=== PATIENT | female | born 1985 ===

== ENCOUNTER 2018-03-14 09:42 | Emergency (ER) | payer BC ==
[2018-03-14 09:45] VITALS: BP 88/28
[2018-03-14] MEDS ORDERED: PROG100C PO (09:50)
[2018-03-14] MEDS ORDERED: AMOX/CLAV 875 MG TAB PO ONE (09:55)
[2018-03-14] MEDS ORDERED: DIPHTH/TETANUS/ACEL. PERTUSSIS IM ONLY ONE (09:55)
--- NOTE | 2018-03-14 10:03 | ER Report ---
History and Physical Time Seen By MD: 09:59 Hx. of Stated Complaint: dog bit to right hand last night. 4-6 small punture wounds, swelling, pain HPI/ROS CHIEF COMPLAINT: Dog bite HISTORY OF PRESENT ILLNESS: Patient is a 33-year-old female who presents to department for evaluation of a dog bite that occurred last evening. She states that 2 of her dogs got into a fight last evening. She tried to break the fight up she was sitting on a couch initially. When the fight occurred she rolled off the couch landing on her tailbone and is having pain with sitting. When she tried to break up a dog fight. She was bit to the thenar eminence of the right hand. She is right-hand dominant. Her last tetanus shot was approximately 5 years ago. Patient states both dogs immunizations are up-to-date including rabies vaccination. Patient is complaining of pain to her tailbone but also to her right hand. No evidence of purulent discharge from the hand patient denies fevers or chills. Allergies: Coded Allergies: No Known Drug Allergies (Unverified , 03/14/18) Home Meds Active Scripts Oxycodone Hcl/Acetaminophen (PERCOCET 5-325 MG TABLET) 1 Each Tablet, 1-2 EACH PO Q6H for PAIN, #20 TAB 0 Refills Prov:AMBROSE DELA CRUZ MD 03/14/18 Amoxicillin/Pot Clav 875-125 Mg Tab (AUGMENTIN 875-125 TABLET) 1 Each Tablet, 1 TAB PO Q12H, #14 TAB 0 Refills Prov:AMBROSE DELA CRUZ MD 03/14/18 Reported Medications Progesterone,Micronized (PROGESTERONE) 100 Mg Capsule, 100 MG PO, CAPSULE 03/14/18 Past Medical/Surgical History History of partial hysterectomy and endometriosis. Hx Substance Use Disorder: No Hx Alcohol Use: No Constitutional Vital Sign - Last 24 Hours 03/14/18 09:45 Temp 97.8 Pulse 76 Resp 14 B/P (MAP) 88/28 Pulse Ox 94 O2 Delivery Room Air Physical Exam General appearance: Alert no distress. Respiratory: Chest is non tender, lungs are clear to auscultation. Cardiac: Regular rate and rhythm [ ] Examination of the Right hand reveals no acute deformity. The patient is able to give a thumbs up sign, is able to make an okay sign, and is able to AB duct the fingers. Sensation is intact over the dorsal 1st web space, the volar aspect of the 2nd finger, and the volar aspect of the 5th finger. Capillary refill is brisk. She has approximately 6 puncture wounds to the thenar eminence of the right hand. The right hand has some bruising and swelling. There is no overlying erythema there is no purulent discharge from the wound. [ ] Medical Decision Making EKG/Imaging Imaging FACILITY: [facility] PATIENT NAME: Korin Will : 1985 MR: [id number] V: [id number] EXAM DATE: ORDERING PHYSICIAN: AMBROSE DELA CRUZ TECHNOLOGIST: [place] [facility] [place] Korin Will : 1985 Visit/Account:[id number] Date of Sevice: 03/14/2018 SACRUM COCCYX Indication: Trauma. Comparison: None available. Findings: 2 views of the sacrum and coccyx. Possible nondisplaced fracture of the inferior sacrum, only seen on the lateral view. Otherwise no acute fracture, dislocation, or radiopaque foreign body. Normal mineralization, joint spaces, and alignment. Impression: Possible nondisplaced fracture of the inferior sacrum, only seen on the lateral view. Report Dictated By: Jaspal Ulloa MD at 03/14/2018 10:34 AM Report E-Signed By: Jaspal Ulloa MD at 03/14/2018 10:37 AM WSN:[id number] FACILITY: [facility] PATIENT NAME: Korin Will : 1985 MR: [id number] V: [id number] EXAM DATE: ORDERING PHYSICIAN: AMBROSE DELA CRUZ TECHNOLOGIST: [place] [facility] [place] Korin Will : 1985 Visit/Account:[id number] Date of Sevice: 03/14/2018 HAND COMPLETE RIGHT FINGER RIGHT THUMB Indication: Right hand and thumb pain. Comparison: None available. Findings: 3 views of the right hand. 3 views of the right thumb. No evidence of acute fracture, dislocation, or radiopaque foreign body. Normal mineralization, joint spaces, and alignment. Impression: Negative right hand and right thumb radiographs. Report Dictated By: Jaspal Ulloa MD at 03/14/2018 10:37 AM Report E-Signed By: Jaspal Ulloa MD at 03/14/2018 10:40 AM WSN:[id number] ED Course/Re-evaluation ED Course 03/14/2018 10:03:05 am when at this time will be to x-ray the thumb and right hand. We will give the patient updated tetanus shot start the patient on oral Augmentin. We will also x-ray of the sacral spine. Decision to Disposition Date: Mar 14, 2018 Decision to Disposition Time: 10:48 Depart Departure Latest Vital Signs Vital Signs Date Time Temp Pulse Resp B/P (MAP) Pulse Ox O2 Delivery O2 Flow Rate FiO2 03/14/18 09:45 97.8 76 14 88/28 94 Room Air Impression: Primary Impression: Dog bite of hand Additional Impression: Sacral fracture, closed Condition: Improved Disposition: HOME OR SELF-CARE New Scripts Oxycodone Hcl/Acetaminophen (PERCOCET 5-325 MG TABLET) 1 Each Tablet 1-2 EACH PO Q6H for PAIN, #20 TAB 0 Refills Prov: AMBROSE DELA CRUZ MD 03/14/18 Amoxicillin/Pot Clav 875-125 Mg Tab (AUGMENTIN 875-125 TABLET) 1 Each Tablet 1 TAB PO Q12H, #14 TAB 0 Refills Prov: AMBROSE DELA CRUZ MD 03/14/18 Departure Forms: ER Transition Record, Medications Reconciliation, Off Work/ School Form, School or Work Release?: Work Number of days to be released: 2 Patient Portal Information Patient Instructions: Animal Bite (ED) Additional Instructions: If you develop fever at any time, worsening pain to the hand pus out of the wound or redness that extends from the wounds you should return to the emergency department for further evaluation. Problem Qualifiers Primary Impression: Dog bite of hand Encounter type: initial encounter Laterality: right Qualified Codes: S61.451A - Open bite of right hand, initial encounter; W54.0XXA - Bitten by dog , initial encounter Additional Impression: Sacral fracture, closed Encounter type: initial encounter Zone of sacrum fracture: unspecified portion of sacrum Qualified Codes: S32.10XA - Unspecified fracture of sacrum, initial encounter for closed fracture AMBROSE DELA CRUZ MD Mar 14, 2018 10:03
[2018-03-14] MEDS ORDERED: AMOX-559 PO (10:40)
[2018-03-14] MEDS ORDERED: OXYC-865 PO (10:40)
--- NOTE | 2018-03-14 10:41 | RADIOLOGY IMAGING REPORT ---
FACILITY: [facility] PATIENT NAME: Korin Will : 1985 MR: [id number] V: [id number] EXAM DATE: ORDERING PHYSICIAN: AMBROSE DELA CRUZ TECHNOLOGIST: Location: [facility] Patient: Korin Will : 1985 Visit/Account:[id number] Date of Sevice: 03/14/2018 SACRUM COCCYX Indication: Trauma. Comparison: None available. Findings: 2 views of the sacrum and coccyx. Possible nondisplaced fracture of the inferior sacrum, only seen on the lateral view. Otherwise no acute fracture, dislocation, or radiopaque foreign body. Normal mineralization, joint sp aces, and alignment. Impression: Possible nondisplaced fracture of the inferior sacrum, only seen on the lateral view. Report Dictated By: Jaspal Ulloa MD at 03/14/2018 10:34 AM Report E-Signed By: Jaspal Ulloa MD at 03/14/2018 10:37 AM WSN:[id number]
--- NOTE | 2018-03-14 10:43 | RADIOLOGY IMAGING REPORT ---
FACILITY: [facility] [place] PATIENT NAME: Korin Will : 1985 MR: [id number] V: [id number] EXAM DATE: ORDERING PHYSICIAN: AMBROSE DELA CRUZ TECHNOLOGIST: [place] [facility] [place]: Korin Will : 1985 Visit/Account:[id number] Date of Sevice: 03/14/2018 HAND COMPLETE RIGHT FINGER RIGHT THUMB Indication: Right hand and thumb pain. Comparison: None available. Findings: 3 views of the right hand. 3 views of the right thumb. No evidence of acute fracture, dislocation, or radiopaque foreign body. Normal mineralization, joint spaces, and alignment. Impression: Negative right hand and right thumb radiographs. Report Dictated By: Jaspal Ulloa MD at 03/14/2018 10:37 AM Report E-Signed By: Jaspal Ulloa MD at 03/14/2018 10:40 AM WSN:[id number]
--- NOTE | 2018-03-14 10:43 | RADIOLOGY IMAGING REPORT ---
FACILITY: [facility] [place] PATIENT NAME: Korin Will : 1985 MR: [id number] V: [id number] EXAM DATE: ORDERING PHYSICIAN: AMBROSE DELA CRUZ TECHNOLOGIST: Location: [facility] Patient: Korin Will : 1985 Visit/Account:[id number] Date of Sevice: 03/14/2018 HAND COMPLETE RIGHT FINGER RIGHT THUMB Indication: Right hand and thumb pain. Comparison: None available. Findings: 3 views of the right hand. 3 views of the right thumb. No evidence of acute fracture, dislocation, or radiopaque foreign body. Normal mineralization, joint spaces, and alignment. Impression: Negative right hand and right thumb radiographs. Report Dictated By: Jaspal Ulloa MD at 03/14/2018 10:37 AM Report E-Signed By: Jaspal Ulloa MD at 03/14/2018 10:40 AM WSN:[id number]
== END 2018-03-14 10:57 | disposition home or self-care (01) ==
LOC: ER 09:46
DX: S61.451A Open bite of right hand, initial encounter (principal); S32.10XA Unspecified fracture of sacrum, initial encounter for closed fracture; W08.XXXA Fall from other furniture, initial encounter; W54.0XXA Bitten by dog, initial encounter
CPT/HCPCS: 72220; 90471; 90715; 99284

== ENCOUNTER 2018-03-27 00:51 | Observation (INO) | payer BC ==
--- NOTE | 2018-03-26 21:24 | HISTORY AND PHYSICAL ---
DATE OF ADMISSION: March 27, 2018 CHIEF COMPLAINT Left lower quadrant pain. HISTORY OF PRESENT ILLNESS The patient is a 33-year-old, 1, para zero, with left lower quadrant pain beginning many months ago, initiated in the left lower quadrant. It was nonradiating, and she reported the pain as crampy and as moderate intensity. It was constant and had been a sudden onset. The patient has a history of endometriosis, and she had a bilateral salpingo-oophorectomy in 2016. However, she has had menopausal symptoms, and when put on control pills, her bleeding and pain worsened. After discussion of risks and alternatives, patient desired to proceed with robot-assisted hysterectomy and diagnostic cystoscopy. MEDICATIONS 1. Aygestin 5 mg q. day. 2. Clobetasol p.r.n. 3. MetroGel vaginal. 4. Premarin cream 0.625 mg per a.m. 5. Tramadol. ALLERGIES No known allergies. REVIEW OF SYSTEMS GENITOURINARY: Per HPI. GENERAL, SKIN, EYES, EARS, NOSE, MOUTH, NECK, RESPIRATORY, CARDIOVASCULAR, GASTROINTESTINAL, NEUROLOGIC, PSYCHIATRIC: All reviewed and noncontributory. PAST HISTORY 1. Endometriosis. 2. Traumatic brain injury with a concussion. PAST SURGICAL HISTORY 1. 2011, a breast reduction for back pain. 2. 2016, BSO for endometriosis and ovarian cyst removal. FAMILY HISTORY Father with diabetes. SOCIAL HISTORY Drinks alcohol occasionally. She is an everyday smoker. Denies illicit drug use. PHYSICAL EXAMINATION VITAL SIGNS: BP 130/64, temp 98, weight 116. CONSTITUTIONAL: Well-nourished, well-developed female in no distress. SKIN: Without rash or lesions. NECK: Supple, without masses. HEART: Regular rate and rhythm. LUNGS: Clear to auscultation bilaterally. ABDOMEN: Soft, nontender, nondistended. Bowel sounds positive. EXTREMITIES: Nontender. No edema. PSYCHIATRIC: Alert and oriented times three. Normal mood and affect. PELVIC: Normal external female genitalia. Well-estrogenized vaginal lining. Urethra normal appearance. Uterus 5 x 4 cm, nontender. She had no adnexal masses or tenderness. ASSESSMENT Pelvic pain with history of endometriosis. PLAN Robotic-assisted hysterectomy with diagnostic cystoscopy. [facility] CENTER[facility]io
[2018-03-27] VITALS (17 sets, daily range): BP systolic 109–157; BP diastolic 79–103
[~2018-03-27] VITALS: Ht 160 cm; Wt 49.9 kg
[~2018-03-27 00:51] MED LIST: AMOX-559 PO; CALC-734 PO; MET70GEL PV; OXYC-865 PO; PROG100C PO
--- NOTE | 2018-03-27 07:34 | Post Operative Note ---
Operative Note - CUSTOMER CARE ASSOCIATE Operative Day Date: Mar 27, 2018 Time: 11:35 Physicians Surgeon: BLAIRE Rn Iv Therapy: MIRANDA Anesthesia: OSHEA Diagnosis Pre-Op Diagnosis: PELVIC PAIN ENDOMETRIOSIS Post-Op Diagnosis: SAME ADHESIONS Procedure Findings: UTERUS 5X4 CM SURGICALLY ABSENT OVARIES ANTERIOR AB WALL ADHESIONS, RIGHT PELVIC SIDEWALL ADHESIONS [id number] Procedure(s): RAH DX CYSTO ADHESIOLYSIS Complications: 0 Fluids Fluids: 1200 CC NR IV Estimated Blood Loss: MINIMAL Dictated Date OP Note Dictated: Mar 27, 2018 Time OP Note Dictated: 13:05 Copies to: AMAIRANI RUDD MD ; AMAIRANI RUDD MD Mar 27, 2018 07:34
[2018-03-27 09:26] LABS: PLATELET COUNT, AUTOMATED 289 K/uL (150-450)
[2018-03-27] MEDS ORDERED: fentaNYL CITR 250 MCG/5 ML AMP ONE (09:42)
[2018-03-27] MEDS ORDERED: LIDOCAINE MPF 1% 5 ML VIAL ONE (09:43)
[2018-03-27] MEDS ORDERED: PROPOFOL EMUL(*) 10MG/ML 20 ML 20 ML ONE (09:43)
[2018-03-27] MEDS ORDERED: DEXAMETHASONE SOD PHOS 10MG/ML ONE (09:43)
[2018-03-27] MEDS ORDERED: ROCURONIUM BROM 10 MG/ML 10 ML ONE (09:43)
[2018-03-27] MEDS ORDERED: GLYCOPYRROLATE 1 MG/5 ML INJ ONE (09:43)
[2018-03-27] MEDS ORDERED: APREPITANT 40 MG CAP PO ONE (09:45)
[2018-03-27] MEDS ORDERED: SCOP1PAT16 TD (09:49)
[2018-03-27] MEDS ORDERED: ROPIVACAINE 0.2% 20 ML VIAL ONE (10:12)
[2018-03-27] MEDS ORDERED: FAMOTIDINE 20 MG TAB PO ONE (10:15)
[2018-03-27] MEDS ORDERED: cefOXitin/DEX(*) 2GM/50ML PREM 50 ML IVPB ONE (10:15)
[2018-03-27] MEDS ORDERED: HYDROmorphone HCL 2 MG TAB PO ONE (10:15)
[2018-03-27] MEDS ORDERED: LIDOCAINE/SOD BICARB 8.4% SYR ID ONE (10:15)
[2018-03-27] MEDS ORDERED: PHENAZOPYRIDINE 200 MG TAB PO ONE (10:15)
[2018-03-27] MEDS ORDERED: NORMOSOL R SOLN(*) 1000 ML BAG 1,000 ML IV PRN (10:15)
[2018-03-27] MEDS ORDERED: MIDAZOLAM 2 MG/2 ML VIAL IVP PRN (10:15)
[2018-03-27] MEDS ORDERED: CELECOXIB 200 MG CAP PO ONE (10:15)
[2018-03-27] MEDS ORDERED: OXYC-865 PO (11:06)
[2018-03-27] MEDS ORDERED: IBUP800T37 PO (11:06)
[2018-03-27] MEDS ORDERED: NORE5TAB8 PO (11:06)
--- NOTE | 2018-03-27 11:07 | OB/GYN Discharge Summary ---
Discharge Summary Reason for Hosp/Final Diag: (1) S/P robot-assisted surgical procedure Hospital Course & Plan: RAH DX CYSTO Performed without complications, on day 1, Pain controlled, Tolerating diet and activity. Lates Vital Signs Vital Signs Date Time Temp Pulse Resp B/P (MAP) Pulse Ox O2 Delivery O2 Flow Rate FiO2 03/27/18 09:20 99.2 72 16 109/79 (89) 96 Room Air Weight (Pounds): 110 Result Diagram: 03/27/18917 Condition: Improved Discharge: Home, Self Nursing Home Meds Active Scripts Norethindrone Acetate (AYGESTIN) 5 Mg Tablet, 5 MG PO QDAY, #30 TAB 5 Refills Prov:AMAIRANI RUDD MD 03/27/18 Oxycodone Hcl/Acetaminophen (PERCOCET 5-325 MG TABLET) 1 Each Tablet, 1 EACH PO Q4H for PAIN, #20 TAB 0 Refills TAKE 1 TABLET NEEDED FOR PAIN - NO CLOSER THAN EVERY 4-6 HOURS. Prov:AMAIRANI RUDD MD 03/27/18 Ibuprofen (IBUPROFEN) 800 Mg Tablet, 1 TAB PO Q8H, #30 TAB 0 Refills Take with food every 8 hours. Prov:AMAIRANI RUDD MD 03/27/18 Reported Medications Scopolamine (Scopolamine) 1 Mg/3 Day Patch.td.3, 1 PATCH TD ONCE 03/27/18 Calcium Carbonate/Vitamin D3 (CALCIUM 500 + D TABLET) 1 Each Tablet, 3 EACH PO QDAY 03/20/18 Metronidazole (METRONIDAZOLE) 70 Gm Appful, 70 GM PV 2XW, APPFUL 03/20/18 Progesterone,Micronized (PROGESTERONE) 100 Mg Capsule, 100 MG PO QDAY, CAPSULE 03/14/18 Discontinued Scripts Oxycodone Hcl/Acetaminophen (PERCOCET 5-325 MG TABLET) 1 Each Tablet, 1-2 EACH PO Q6H for PAIN, #20 TAB 0 Refills Prov:AMBROSE DELA CRUZ MD 03/14/18 Amoxicillin/Pot Clav 875-125 Mg Tab (AUGMENTIN 875-125 TABLET) 1 Each Tablet, 1 TAB PO Q12H, #14 TAB 0 Refills Prov:AMBROSE DELA CRUZ MD 03/14/18 [facility] [phone] Follow up in: 6 wks PP or PO, 2 wks PO Discharge Diet: As Tolerates Discharge Activity: Pelvic Rest Copies to: AMAIRANI RUDD MD ; AMAIRANI RUDD MD Mar 27, 2018 11:07
[2018-03-27] MEDS ORDERED: ESMOLOL 10 MG/ML 10ML SDV ONE (11:08)
[2018-03-27] MEDS ORDERED: SUGAMMADEX SOD 200 MG/2 ML SDV ONE (12:35)
[2018-03-27] MEDS ORDERED: FAMOTIDINE(*) 20MG/50ML PREMIX 50 ML IVPB PRN (12:51)
[2018-03-27] MEDS ORDERED: ONDANSETRON 4 MG/2 ML VIAL IV PRN (12:55)
[2018-03-27] MEDS ORDERED: INFLUENZA VIRUS VAC 0.5 ML SYR IM ONE (12:55)
[2018-03-27] MEDS ORDERED: METOCLOPRAMIDE 10 MG/2 ML SDV IV PRN (12:55)
[2018-03-27] MEDS ORDERED: PROMETHAZINE 25 MG/ML 1 ML AMP IVP PRN (12:55)
[2018-03-27] MEDS: SIMETHICONE 80 MG CHEW CHEW SCH ×3 (13:00→21:28)
[2018-03-27] MEDS ORDERED: fentaNYL CITR 100 MCG/2 ML AMP ONE ×2 (13:04→14:10)
[2018-03-27] MEDS: ACETAMINOPHEN(*)1000 MG/100 ML 100 ML IVPB SCH ×2 (13:17→20:13)
[2018-03-27] MEDS ORDERED: HYDROmorphone HCL 2 MG TAB PO PRN (13:30)
[2018-03-27] MEDS ORDERED: PROMETHAZINE 25 MG/ML 1 ML AMP ONE (14:07)
--- NOTE | 2018-03-27 14:47 | OPERATIVE REPORT 1 ---
EVENT DATE: March 27, 2018 SURGEON: Bill Zavaleta MD ANESTHESIOLOGIST: Yash Giraldo MD ANESTHESIA: transformer shop supervisor: Shelton Castro MD PREOPERATIVE DIAGNOSIS 1. Pelvic pain. 2. Endometriosis. POSTOPERATIVE DIAGNOSIS 1. Pelvic pain. 2. Endometriosis. 3. Adhesions. PROCEDURE PERFORMED 1. Robotic assisted hysterectomy with adhesiolysis and diagnostic cystoscopy. COMPLICATIONS None. FLUIDS 1200 cc. Normosol IV. ESTIMATED BLOOD LOSS Minimal. INDICATIONS The patient is a 33-year-old female with biopsy proven endometriosis. She had bilateral salpingo oophorectomy at the [facility] for endometriosis. The patient has had worsening pain and bleeding since trying to manage her pain medically as well as vasomotor symptoms. After discussion of risks and alternatives, the patient desired to proceed with hysterectomy. Discussed risks, benefits, and alternatives, the patient wished to proceed with Robotic hysterectomy. FINDINGS Uterus 5x4 cm, surgically absent ovaries, adhesion on the anterior abdominal and right side wall. DESCRIPTION OF PROCEDURE After informed consent was obtained, the patient was taken to the operating room with the IV running, placed in a supine position, where general anesthesia was obtained without difficulty. She was then placed in the [facility], examined under anesthesia, with the above findings. She was then prepped and draped in the usual fashion. A Marks catheter was placed. The weighted speculum was placed into the vagina. The cervix was grasped with a single-tooth tenaculum. The uterus sounded to 8 cm. The medium V-Care was then placed inside the cervix into the uterus and sewn into place. Once the V-Care was placed the remainder of the instruments were removed from the vagina. The legs were lowered. Attention then turned to the abdomen. 0.2 Naropin infiltrated at the umbilicus. Skin incision made with the scalpel. The Veress needle was advanced into the abdominal cavity. Normal CO2 filling pressures were noted after adequate insufflation. An 8 mm bladeless trocar was advanced into the abdominal cavity under laparoscopic guidance. Intraabdominal placement was confirmed by laparoscopy. No injuries were noted at the time of entry. The anterior abdominal wall adhesion was noted. The 1, 2, and 4 ports were then placed in a horizontal line 8 cm from the camera port which was in the umbilicus at #3. They were all placed in a similar fashion. 0.2 Naropin in the skin and skin incision made with the scalpel and advanced the trocars under direct visualization. The assist port was then placed in the right lateral position after 0.2 Naropin, skin incision with the scalpel, and then advancing 11-12 trocar under direct visualization. Once all of the ports were placed, the robot was then docked. Targeting was successful, after placing of the camera and the remainder of the instruments were attached to the robot and placed into the abdominal cavity. Once this had been performed Dr. Zavaleta attended the console. The anterior abdominal wall adhesion was removed with Endoshears, the right pelvic side wall were removed with traction and the use of the Endoshears with the robot. Once the bowel was freed from the adhesions, the bowel was allowed to escape from the pelvis. The uterus was elevated. The right round ligament was then identified. The vessel sealer was used to seal and transect the round ligament, down through the broad ligament, down to the lower uterine segment. The V-Care cup was identified. The ProGrasp grasped the peritoneum above the V- Care cup. The Endoshears were then used to incise the peritoneum over the V- Care cup. The uterine arteries were identified in the lower uterine segment and were grasped with the vessel sealer at a perpendicular angle, sealed and transected and the vessel sealer was then used to grasp the pedicles parallel to the cervix and the Endoshears were then used transect the pedicle serially in order to remove the pedicle outside of the V-Care cup. Once this had been performed, attention was then turned to the patient's left. The round ligament in a similar fashion was grasped with the vessel sealer and transected. The broad ligament was transected with the vessel sealer down to the lower uterine segment. The uterine arteries were identified. The vessel sealer was then used to grasp across the uterine arteries perpendicularly sealed and transected. The vessel sealer was then used parallel to the cervix and the Endoshears were used to transect the remainder of the pedicle. The colpotomy was performed going from the 12 o'clock position creating the colpotomy in a counter clockwise fashion, down through the 9 and 6 o'clock position. The colpotomy was then carried from the 12 o'clock to the 3, to the 6 removing the uterus and the uterus was removed from the vagina. The vaginal cuff was then closed with 0 Vicryl in each apex with a [id number] suture grasping the uterosacral ligament as part of the closure. The V-Loc suture was then used to close the remainder of the cuff in a running fashion. Once this had been performed, all instruments were removed from the abdomen. The 11-12 port was then closed with 0 Vicryl with the assistance of a Donny Jorge puncture closure device. The remainder of the skin incisions were closed with 4-0 Monocryl and Dermabond. Cystoscopy was performed. No injuries were noted within the bladder. Bilateral ureteral jets could be seen with Pyridium stained urine. There were some tears in the vagina from removal of the uterus and these were repaired with 0 Vicryl in an interrupted fashion. After no further bleeding was noted and the Marks catheter was replaced, the patient was taken out of the [facility], awakened from anesthesia, taken to the recovery room in stable condition. SANTIAGO
[2018-03-27] MEDS: DLR(*) 1000 ML BAG 1,000 ML IV PRN ×2 (15:30→20:19)
[2018-03-27] MEDS: HYDROmorphone HCL 2 MG TAB PO PRN ×2 (16:34→21:29)
[2018-03-27] MEDS: CELECOXIB 200 MG CAP PO SCH (20:13)
[2018-03-27] MEDS: FAMOTIDINE 20 MG TAB PO SCH (21:29)
[2018-03-27] MEDS: DOCUSATE CALCIUM 240 MG CAP PO SCH (21:29)
[2018-03-28] MEDS: DLR(*) 1000 ML BAG 1,000 ML IV PRN (00:10)
[2018-03-28] MEDS: HYDROmorphone HCL 2 MG TAB PO PRN ×4 (01:31→11:49)
[2018-03-28] MEDS: ACETAMINOPHEN(*)1000 MG/100 ML 100 ML IVPB SCH ×2 (01:42→08:12)
[2018-03-28 03:45] VITALS: BP 131/85
[2018-03-28 06:14] LABS: PLATELET COUNT, AUTOMATED 266 K/uL (150-450)
[2018-03-28 07:15] VITALS: BP 131/89
[2018-03-28] MEDS: SIMETHICONE 80 MG CHEW CHEW SCH ×2 (08:37→11:49)
[2018-03-28] MEDS: DOCUSATE CALCIUM 240 MG CAP PO SCH (08:37)
[2018-03-28] MEDS: FAMOTIDINE 20 MG TAB PO SCH (08:37)
[2018-03-28] MEDS: CELECOXIB 200 MG CAP PO SCH (08:38)
--- NOTE | 2018-03-28 11:20 | OB/GYN Progress Note ---
OB Subjective Progress Notes Subjective Feeling better. Has been up to bathroom and voiding well. Passing gas and tolerating regular diet. Ready to go home. GI: NEG Nausea : Voiding Well Pain: Mild OB Objective Physical Exam Vital Signs Date Time Temp Pulse Resp B/P (MAP) Pulse Ox O2 Delivery O2 Flow Rate FiO2 03/28/18 09:00 93 03/28/18 07:15 99.2 69 16 131/89 (103) Room Air 03/27/18 17:30 0.5 Intake and Output 03/28/18 07:00 Intake Total 3624 ml Output Total 2150 ml Balance 1474 ml IV Total 3374 ml Other 250 ml Output Urine Total 2150 ml Bladder Scan Volume Amount <10 ml General Appearance: Alert/Awake/No Acute Distress Neurological: No Gross deficits Cardiovascular: Normal Rhythm & Peripheral Pulses Respiratory: No Respiratory Distress Abdomen: Soft, Non-Tender, Non-Distended Incision: Clean, Dry, Intact, Dermabond Psychological: Alert & Oriented X3, Appropriate Mood & Affect Result Diagram: 03/28/18 0555 Assessment and Plan EDITOR IN CHIEF NEWSPAPER Plan: Routine Post-Op Care, Discharge Home Today Problems: (1) S/P robot-assisted surgical procedure LIVIER JEAN MD Mar 28, 2018 11:20
== END 2018-03-28 11:20 | disposition home or self-care (01) ==
LOC: OR 00:51 → PED 14:30
PROVIDERS: ADMIT Obstetrics & Gynecology; ATTEND Obstetrics & Gynecology
DX: N80.0 Endometriosis of uterus (principal); R10.2 Pelvic and perineal pain; K66.0 Peritoneal adhesions (postprocedural) (postinfection)
CPT/HCPCS: 36415; 58570; 84703; 85025; 88307; G0378; J0131; J0694; J1100; J2001; J2250; J2405; J2550; J2704; J2795; J3010; J3490; J8501; S2900

== ENCOUNTER 2018-06-07 19:49 | Emergency (ER) | payer BC ==
[~2018-06-07 19:49] MED LIST changes: +IBUP800T37 PO; +NORE5TAB8 PO; +SCOP1PAT16 TD
--- NOTE | 2018-06-07 19:53 | ER Report ---
History and Physical Time Seen By MD: 19:53 HPI/ROS CHIEF COMPLAINT: Right lower quadrant abdominal pain HISTORY OF PRESENT ILLNESS: 33-year-old female who is undergoing hormonal treatment with testosterone and progesterone, status post hysterectomy presents with 4 days of severe right lower quadrant pain. Patient reports a history of urinary tract infections 3. She describes severe 8/10 pain in the perineum and vaginal area. She notes no vaginal discharge or spotting. She describes burning in urination. She's had hematuria. REVIEW OF SYSTEMS: Respiratory: No cough, no dyspnea. Cardiovascular: No chest pain, no palpitations. Gastrointestinal: As above Musculoskeletal: No back pain. Allergies: Coded Allergies: No Known Drug Allergies (Unverified , 06/07/18) Home Meds Active Scripts Ondansetron (ZOFRAN ODT) 4 Mg Tab.rapdis, 4 MG PO every 6 hours PRN for NAUSEA/VOMITING, #15 TAB TAKE 1 TABLET BY MOUTH EVERY 12 HOURS Prov:LISANDRA BOOTHE DO 06/07/18 Reported Medications [Testosterone Cream] No Conflict Check 06/07/18 [Testosterone Patch] No Conflict Check 06/07/18 Hydroxyzine Hcl (HYDROXYZINE HCL) 50 Mg Tablet, 50 MG PO Q8H PRN for ANXIETY 06/07/18 Progesterone,Micronized (PROGESTERONE) 200 Mg Capsule, 200 MG PO QDAY, CAPSULE 06/07/18 Discontinued Reported Medications Calcium Carbonate/Vitamin D3 (CALCIUM 500 + D TABLET) 1 Each Tablet, 3 EACH PO QDAY 03/20/18 Discontinued Scripts Norethindrone Acetate (AYGESTIN) 5 Mg Tablet, 5 MG PO QDAY, #30 TAB 5 Refills Prov:AMAIRANI RUDD MD 03/27/18 Oxycodone Hcl/Acetaminophen (PERCOCET 5-325 MG TABLET) 1 Each Tablet, 1 EACH PO Q4H for PAIN, #20 TAB 0 Refills TAKE 1 TABLET NEEDED FOR PAIN - NO CLOSER THAN EVERY 4-6 HOURS. Prov:AMAIRANI RUDD MD 03/27/18 Ibuprofen (IBUPROFEN) 800 Mg Tablet, 1 TAB PO Q8H, #30 TAB 0 Refills Take with food every 8 hours. Prov:AMAIRANI RUDD MD 03/27/18 Reviewed Nurses Notes: Yes Old Medical Records Reviewed: Yes Hx Smoking: No (1/2 PPD FOR 10 YEARS ATTEMPTING TO QUIT ) Hx Substance Use Disorder: No Hx Alcohol Use: No Constitutional Vital Sign - Last 24 Hours 06/07/18 06/07/18 06/07/18 06/07/18 19:53 19:55 20:00 20:04 Temp 97.4 Pulse 70 72 Resp 20 B/P (MAP) 136/85 136/85 (102) 125/87 (100) Pulse Ox 95 95 O2 Delivery Room Air 06/07/18 06/07/18 06/07/18 06/07/18 20:19 20:30 20:34 21:00 Pulse 75 71 B/P (MAP) 131/108 (116) 117/86 (96) Pulse Ox 96 95 06/07/18 06/07/18 06/07/18 06/07/18 21:04 21:19 21:30 21:34 Pulse 68 60 74 B/P (MAP) 128/92 (104) Pulse Ox 94 95 94 06/07/18 06/07/18 06/07/18 21:39 21:54 22:00 Pulse 65 71 B/P (MAP) 128/87 (101) Pulse Ox 94 94 Intake and Output 06/07/18 06/07/18 06/08/18 15:00 23:00 07:00 Intake Total 1000 ml Balance 1000 ml Physical Exam General Appearance: The patient is alert, has no immediate need for airway protection and no current signs of toxicity. Vital signs stable, afebrile, pulse ox normal Eyes: Pupils equal and round no injection. Oropharynx without redness, no dyspnea or moist Respiratory: Chest is non tender, lungs are clear to auscultation. Cardiac: regular rate and rhythm Gastrointestinal: Abdomen is soft, mild right lower quadrant and suprapubic tenderness, no rebound or guarding, no masses, bowel sounds normal. Musculoskeletal: Neck: Neck is supple and non tender. No lymphadenopathy Extremities have full range of motion and are non tender. Skin: No rashes or lesions. DIFFERENTIAL DIAGNOSIS: After history and physical exam differential diagnosis was considered for abdominal pain including but not limited to appendicitis, cholecystitis, gastritis and urinary tract infection. Medical Decision Making Data Points Result Diagram: 06/07/18200906/07/182009 Laboratory Hematology Test 06/07/18 19:52 06/07/18 20:10 Urine Color Odalis Urine Clarity Clear Urine pH 7.0 pH (4.8-9.5) Urine Specific Henderson 1.002 Urine Protein Negative mg/dL (NEGATIVE) Urine Glucose (UA) Negative mg/dL (NEGATIVE) Urine Ketones Negative mg/dL (NEGATIVE) Urine Blood Moderate (NEGATIVE) Urine Nitrite Positive (NEGATIVE) Urine Bilirubin Negative (NEGATIVE) Urine Urobilinogen 2.0 mg/dL (0.2-1.9) Urine Leukocyte Esterase Trace (NEGATIVE) Urine RBC 2 /HPF (0-2/HPF) Urine WBC 2 /HPF (0-5/HPF) Urine Squamous Epithelial Cells Many /LPF (</=FEW) Urine Bacteria Few /HPF (NONE-FEW) Urine Mucus None /HPF (NONE-FEW) Red Blood Count 4.61 M/uL (4.17-5.56) Mean Corpuscular Volume 91.5 fL (80.0-96.0) Mean Corpuscular Hemoglobin 32.3 pg (26.0-33.0) Mean Corpuscular Hemoglobin Concent 35.3 g/dL (32.0-36.0) Red Cell Distribution Width 12.6 % (11.5-14.5) Mean Platelet Volume 8.1 fL (7.2-11.1) Neutrophils (%) (Auto) 43.5 % (39.4-72.5) Lymphocytes (%) (Auto) 44.5 % (17.6-49.6) Monocytes (%) (Auto) 7.6 % (4.1-12.4) Eosinophils (%) (Auto) 3.7 % (0.4-6.7) Basophils (%) (Auto) 0.7 % (0.3-1.4) Nucleated RBC Relative Count (auto) 0.1 /100WBC Neutrophils # (Auto) 4.2 K/uL (2.0-7.4) Lymphocytes # (Auto) 4.3 K/uL (1.3-3.6) Monocytes # (Auto) 0.7 K/uL (0.3-1.0) Eosinophils # (Auto) 0.4 K/uL (0.0-0.5) Basophils # (Auto) 0.1 K/uL (0.0-0.1) Nucleated RBC Absolute Count (auto) 0.01 K/uL Sodium Level 138 mmol/L (137-145) Potassium Level 3.8 mmol/L (3.5-5.0) Chloride Level 108 mmol/L (98-107) Carbon Dioxide Level 22 mmol/L (22-31) Blood Urea Nitrogen 14 mg/dl (7-18) Creatinine 0.70 mg/dl (0.52-1.04) Glomerular Filtration Rate Calc > 60.0 Random Glucose 117 mg/dl (75-110) Calcium Level 8.9 mg/dl (8.4-10.2) Total Bilirubin 0.3 mg/dl (0.2-1.3) Aspartate Amino Transf (AST/SGOT) 19 U/L (0-35) Alanine Aminotransferase (ALT/SGPT) 25 U/L (0-56) Alkaline Phosphatase 50 U/L (0-126) Total Protein 6.7 g/dl (6.3-8.2) Albumin 3.8 g/dl (3.5-5.0) Amylase Level 64 U/L (0-110) Lipase 243 U/L (23-300) Chemistry Test 06/07/18 19:52 06/07/18 20:10 Urine Color Odalis Urine Clarity Clear Urine pH 7.0 pH (4.8-9.5) Urine Specific Henderson 1.002 Urine Protein Negative mg/dL (NEGATIVE) Urine Glucose (UA) Negative mg/dL (NEGATIVE) Urine Ketones Negative mg/dL (NEGATIVE) Urine Blood Moderate (NEGATIVE) Urine Nitrite Positive (NEGATIVE) Urine Bilirubin Negative (NEGATIVE) Urine Urobilinogen 2.0 mg/dL (0.2-1.9) Urine Leukocyte Esterase Trace (NEGATIVE) Urine RBC 2 /HPF (0-2/HPF) Urine WBC 2 /HPF (0-5/HPF) Urine Squamous Epithelial Cells Many /LPF (</=FEW) Urine Bacteria Few /HPF (NONE-FEW) Urine Mucus None /HPF (NONE-FEW) White Blood Count 9.7 k/uL (4.5-11.0) Red Blood Count 4.61 M/uL (4.17-5.56) Hemoglobin 14.9 g/dL (12.0-16.0) Hematocrit 42.1 % (34.0-47.0) Mean Corpuscular Volume 91.5 fL (80.0-96.0) Mean Corpuscular Hemoglobin 32.3 pg (26.0-33.0) Mean Corpuscular Hemoglobin Concent 35.3 g/dL (32.0-36.0) Red Cell Distribution Width 12.6 % (11.5-14.5) Platelet Count 223 K/uL (150-450) Mean Platelet Volume 8.1 fL (7.2-11.1) Neutrophils (%) (Auto) 43.5 % (39.4-72.5) Lymphocytes (%) (Auto) 44.5 % (17.6-49.6) Monocytes (%) (Auto) 7.6 % (4.1-12.4) Eosinophils (%) (Auto) 3.7 % (0.4-6.7) Basophils (%) (Auto) 0.7 % (0.3-1.4) Nucleated RBC Relative Count (auto) 0.1 /100WBC Neutrophils # (Auto) 4.2 K/uL (2.0-7.4) Lymphocytes # (Auto) 4.3 K/uL (1.3-3.6) Monocytes # (Auto) 0.7 K/uL (0.3-1.0) Eosinophils # (Auto) 0.4 K/uL (0.0-0.5) Basophils # (Auto) 0.1 K/uL (0.0-0.1) Nucleated RBC Absolute Count (auto) 0.01 K/uL Glomerular Filtration Rate Calc > 60.0 Calcium Level 8.9 mg/dl (8.4-10.2) Total Bilirubin 0.3 mg/dl (0.2-1.3) Aspartate Amino Transf (AST/SGOT) 19 U/L (0-35) Alanine Aminotransferase (ALT/SGPT) 25 U/L (0-56) Alkaline Phosphatase 50 U/L (0-126) Total Protein 6.7 g/dl (6.3-8.2) Albumin 3.8 g/dl (3.5-5.0) Amylase Level 64 U/L (0-110) Lipase 243 U/L (23-300) Urinalysis Test 06/07/18 19:52 Urine Color Odalis Urine Clarity Clear Urine pH 7.0 pH (4.8-9.5) Urine Specific Henderson 1.002 Urine Protein Negative mg/dL (NEGATIVE) Urine Glucose (UA) Negative mg/dL (NEGATIVE) Urine Ketones Negative mg/dL (NEGATIVE) Urine Blood Moderate (NEGATIVE) Urine Nitrite Positive (NEGATIVE) Urine Bilirubin Negative (NEGATIVE) Urine Urobilinogen 2.0 mg/dL (0.2-1.9) Urine Leukocyte Esterase Trace (NEGATIVE) Urine RBC 2 /HPF (0-2/HPF) Urine WBC 2 /HPF (0-5/HPF) Urine Squamous Epithelial Cells Many /LPF (</=FEW) Urine Bacteria Few /HPF (NONE-FEW) Urine Mucus None /HPF (NONE-FEW) EKG/Imaging Imaging Results: CT scan of the abdomen and pelvis with IV contrast was obtained. The results of the study are ABDOMEN/PELVIS WITH CONTRAST Additional pertinent History: Right lower quadrant pain. Hematuria TECHNIQUE: Spiral scan was through the abdomen and pelvis during injection of nonionic iodinated intravenous contrast. Contrast: 75 mL of IV Isovue-370. One of the following dose optimization techniques was utilized in the performance of this exam: Automated exposure control; adjustment of the mA and/or kV according to the patient's size; or use of an iterative reconstruction technique. Specific details can be referenced in the facility's radiology CT exam operational policy. FINDINGS: Liver / biliary: Mild periportal edema. Gallbladder unremarkable. No gallstones. Pancreas: negative Spleen: negative Adrenal glands: negative Kidneys / retroperitoneum: Right kidney: No obvious stone. There there is a small punctate density that may represent early excretion versus 2 mm stones. (Image 44 series 2) There is a prominent extrarenal pelvis. The ureters difficult to follow beyond its proximal aspect. No ureteral obstructive change noted. Left kidney demonstrates what appears to be a nonobstructing 2.5 mm stone in the upper left kidney (axial image 46 series 2) additional small punctate density is seen in the lower pole which may represent early excretion versus a small stone. There is a prominent extrarenal pelvis. The ureter is difficult to follow beyond its proximal aspect. There is a punctate density 2 mm density at the base of the bladder (image 122 series 2) that appears similar to the stone seen in the left kidney. I do not definitively see this with an any dilated ureter. Pelvic structures: No obvious stones within the bladder to suggest recently passed stones. Status post hysterectomy. No pelvic mass lesions. No abnormal fluid. Bowel / peritoneum / mesenteries: No colonic inflammation. Appendix normal with no evidence of appendicitis. Vessels: negative Musculoskeletal / Body wall: negative Lymph node assessment: negative Lower chest: negative IMPRESSION: 1. Negative study for appendicitis. 2. There appears to be at least one definite 2.5 m stone in the left kidney. Additional small punctate densities in both kidneys. May represent stones or possibly early excretion. Both kidneys have symmetric appearing collecting systems with no obvious evidence of renal obstructive change. Following the course of both ureters to the bladder demonstrates no obvious ureteral dilatation. There is a punctate density seen at the base of the left bladder in the expected location of the left ureter although it could not definitively be seen within the ureter. If this is a stone in the distal left ureter, it does not appear to be resulting in upstream obstruction. The study was read by the radiologist. I viewed the images myself on the PACS system. ED Course/Re-evaluation Clinical Indication for ER IV: Hydration, IV Access ED Course Patient was admitted to an examination room. H&P was done. The differential diagnoses was considered. Patient with bilateral back pain, lower abdominal pain. She's having gross hematuria for 4 days. She's had no fever. She does have a history of 3 previous UTIs. Patient's treated with IV fluid hydration, antibiotics and analgesia IV. Diagnostic studies are sent off. Her white blood cell counts normal at 9.7 without left shift. Remainder of her diagnostic studies are unremarkable. Her urine shows mild hematuria. There is some color change secondary to Pyridium, which would suggest or nitrates present, but there are not likely. Patient requires significant pain medication for relief. A CT scan of the abdomen and pelvis is ordered to rule out significant pathology. It shows several kidney stones. There is a suggestion of a stone in the left ureter near the bladder. I had a prolonged discussion with the patient offering her admission for pain control. She declined. He would like to go home. I advised urgent follow-up with urology this next week. Patient's given a prescription for Lortab and Zofran. She is advised ibuprofen. Decision to Disposition Date: Jun 07, 2018 Decision to Disposition Time: 21:20 Depart Departure Latest Vital Signs Vital Signs Date Time Temp Pulse Resp B/P (MAP) Pulse Ox O2 Delivery O2 Flow Rate FiO2 06/07/18 22:00 128/87 (101) 06/07/18 21:54 71 94 06/07/18 19:53 97.4 20 Room Air Impression: Primary Impression: Hematuria Additional Impression: Abdominal pain Condition: Improved Disposition: HOME OR SELF-CARE Referrals: ZULEYKA MORRIS MD,RUT Juarez MD New Scripts Ondansetron (ZOFRAN ODT) 4 Mg Tab.rapdis 4 MG PO every 6 hours PRN for NAUSEA/VOMITING, #15 TAB TAKE 1 TABLET BY MOUTH EVERY 12 HOURS Prov: LISANDRA BOOTHE DO 06/07/18 Patient Instructions: Abdominal Pain (ED), Clear Liquid Diet (ED), Hematuria (ED) Additional Instructions: Follow clear liquid diet for 48 hours, then advance to the brat diet Take MiraLAX twice daily until your bowels evacuate Follow-up with urology this next week for reevaluation Problem Qualifiers Primary Impression: Hematuria Hematuria type: unspecified type Qualified Codes: R31.9 - Hematuria, unspecified Additional Impression: Abdominal pain Abdominal location: lower abdomen, unspecified Qualified Codes: R10.30 - Lower abdominal pain, unspecified LISANDRA BOOTHE DO Jun 07, 2018 19:53
[2018-06-07] MEDS ORDERED: NS(*) 0.9% 1000 ML BAG 1,000 ML IV ONE (20:01)
[2018-06-07] MEDS ORDERED: TESTOSTERONE PATCH (20:02)
[2018-06-07] MEDS ORDERED: HYDR-4228 PO (20:02)
[2018-06-07] MEDS ORDERED: TESTOSTERONE CREAM (20:02)
[2018-06-07] MEDS ORDERED: PROG200C PO (20:02)
[2018-06-07] MEDS ORDERED: ONDANSETRON 4 MG/2 ML VIAL IVP ONE (20:05)
[2018-06-07] MEDS ORDERED: fentaNYL CITR 100 MCG/2 ML AMP IVP ONE (20:05)
[2018-06-07 20:17] LABS: PLATELET COUNT, AUTOMATED 223 K/uL (150-450)
[2018-06-07] MEDS ORDERED: KETOROLAC 30 MG/ML VIAL IVP ONE (20:30)
[2018-06-07] MEDS ORDERED: HYDROMORPHONE HCL 1 MG/ML SYRINGE IVP ONE ×2 (20:30→21:30)
[2018-06-07] MEDS ORDERED: IOPAMIDOL 76% 75 ML INFUS BTL 75 ML ONE (20:36)
[2018-06-07] MEDS ORDERED: ONDA4TAB PO (21:43)
[2018-06-07 22:00] VITALS: BP 128/87
[2018-06-07] MEDS ORDERED: ACET/HYDROC 5/325MG TH ER ONLY 2 TAB/BOTTLE PO ONE ×2 (22:00)
[2018-06-07] MEDS ORDERED: ONDANSETRON 4 MG ODT TH SL ONE (22:00)
--- NOTE | 2018-06-07 22:01 | RADIOLOGY IMAGING REPORT ---
[place] [facility] [place]: Korin Will : 1985 MR: [id number] V: [id number] EXAM DATE: ORDERING PHYSICIAN: LISANDRA BOOTHE TECHNOLOGIST: Location: [facility] [place] Patient: Korin Will : 1985 Visit/Account:[id number] Date of Sevice: 06/07/2018 ABDOMEN/PELVIS WITH CONTRAST Additional pertinent History: Right lower quadrant pain. Hematuria TECHNIQUE: Spiral scan was through the abdomen and pelvis during injection of nonionic iodinated in travenous contrast. Contrast: 75 mL of IV Isovue-370. One of the following dose optimization techniques was utilized in the performance of this exam: Autom ated exposure control; adjustment of the mA and/or kV according to the patient's size; or use of an i terative reconstruction technique. Specific details can be referenced in the facility's radiology C T exam operational policy. FINDINGS: Liver / biliary: Mild periportal edema. Gallbladder unremarkable. No gallstones. Pancreas: negative Spleen: negative Adrenal glands: negative Kidneys / retroperitoneum: Right kidney: No obvious stone. There there is a small punctate density t hat may represent early excretion versus 2 mm stones. (Image 44 series 2) There is a prominent extr arenal pelvis. The ureters difficult to follow beyond its proximal aspect. No ureteral obstructive change noted. Left kidney demonstrates what appears to be a nonobstructing 2.5 mm stone in the upper left kidney ( axial image 46 series 2) additional small punctate density is seen in the lower pole which may repres ent early excretion versus a small stone. There is a prominent extrarenal pelvis. The ureter is dif ficult to follow beyond its proximal aspect. There is a punctate density 2 mm density at the base of the bladder (image 122 series 2) that appears similar to the stone seen in the left kidney. I do no t definitively see this with an any dilated ureter. Pelvic structures: No obvious stones within the bladder to suggest recently passed stones. Statu s post hysterectomy. No pelvic mass lesions. No abnormal fluid. Bowel / peritoneum / mesenteries: No colonic inflammation. Appendix normal with no evidence of appen dicitis. Vessels: negative Musculoskeletal / Body wall: negative Lymph node assessment: negative Lower chest: negative IMPRESSION: 1. Negative study for appendicitis. 2. There appears to be at least one definite 2.5 m stone in the left kidney. Additional small punct ate densities in both kidneys. May represent stones or possibly early excretion. Both kidneys have symmetric appearing collecting systems with no obvious evidence of renal obstructive change. Followi ng the course of both ureters to the bladder demonstrates no obvious ureteral dilatation. There is a punctate density seen at the base of the left bladder in the expected location of the left ureter al though it could not definitively be seen within the ureter. If this is a stone in the distal left ur eter, it does not appear to be resulting in upstream obstruction. Report Dictated By: Baron Lucas MD at 06/07/2018 9:14 PM Report E-Signed By: Baron Lucas MD at 06/07/2018 9:57 PM WSN:[id number]
[2018-06-09] MEDS ORDERED: CIPR-214 PO (11:48)
== END 2018-06-07 22:15 | disposition home or self-care (01) ==
LOC: ER 20:08
DX: R31.9 Hematuria, unspecified (principal); R10.31 Right lower quadrant pain
CPT/HCPCS: 74177; 81001; 82150; 83690; 85025; 96361; 96374; 96375; 96376; 99284; J1170; J1885; J2405; J3010; J7030; Q9967; S0119; 82040; 82247; 82310; 82374; 82435; 82565; 82947; 84075; 84132; 84155; 84295; 84450; 84460; 84520

== ENCOUNTER → 2018-06-09 | Outpatient (CLI) | payer BC ==
[~2018-06-09] MED LIST changes: +CIPR-214 PO; +HYDR-4228 PO; +ONDA4TAB PO; +PROG200C PO; +TESTOSTERONE CREAM; +TESTOSTERONE PATCH
== END ==
LOC: LAB 08:47
PROVIDERS: ATTEND Urology
DX: R31.9 Hematuria, unspecified (principal); R10.31 Right lower quadrant pain
CPT/HCPCS: 87088

== ENCOUNTER → 2018-06-18 | Outpatient (CLI) | payer BC ==
[~2018-06-18] MED LIST changes: +IOPAMIDOL 76% 75 ML INFUS BTL 75 ML ONE; +OXYB15TA14 PO
--- NOTE | 2018-06-18 10:17 | RADIOLOGY IMAGING REPORT ---
FACILITY: [facility] - [place] PATIENT NAME: Korin Will : 1985 MR: [id number] V: [id number] EXAM DATE: ORDERING PHYSICIAN: RUT MOYA TECHNOLOG[place] [facility] [place]in [place] : 1985 Visit/Account:[id number] Date of Sevice: 06/18/2018 EXAMINATION: CT Abdomen W/O Contrast CT Abdomen W/ Contrast CT Pelvis W/O Contrast CT Pelvis W/ Contrast 06/18/2018 7:53 AM HISTORY: Hematuria. History of stones. Painful urination. TECHNIQUE: Spiral scans were obtained through the abdomen and pelvis before and during injection of nonionic iodinated intravenous contrast. Delayed images through the pelvis were also obtained. Contrast: 75 mL of IV Isovue 370. One of the following dose optimization techniques was utilized in the performance of this exam: Autom ated exposure control; adjustment of the mA and/or kV according to the patient's size; or use of an i terative reconstruction technique. Specific details can be referenced in the facility's radiology C T exam operational policy. COMPARISON STUDIES: 06/07/2018 study with contrast. FINDINGS: Liver / biliary: negative Pancreas: negative Spleen: negative Adrenal glands: negative Kidneys / retroperitoneum: 3 mm or less stones within both kidneys. Vague papillary density suggesti ng some nephrocalcinosis in the lower pole on the left. Mild calyceal dilatation and a prominent ext rarenal pelvis on the right without a dilated ureter. Minimal calyceal and extra renal pelvis promin ence on the left.. No ureteral stone or dilatation evident. Calcification in the left posterior inf erior bladder appears to be a phlebolith, unchanged in position from the comparison. Pelvic structures: No bladder stone or mass evident. Prior hysterectomy. Bowel / peritoneum / mesenteries: Moderate amount fecal material in the colon, not likely of acute cl inical significance. Small bowel is unremarkable. Normal appendix. No diverticular change. Vessels: negative Musculoskeletal / Body wall: negative Lymph node assessment: negative Lower chest: negative IMPRESSION: 1. Bilateral nonobstructive intrarenal nephrolithiasis. 2. Mild pyelocalyceal prominence of the kidneys greater on the right than the left, similar to previ ous comparison. No obstructing etiology is demonstrated. This may represent a slight component of U PJ obstruction. 3. No significant acute finding otherwise. Report Dictated By: Freddy Motta MD at 06/18/2018 10:01 AM Report E-Signed By: Freddy Motta MD at 06/18/2018 10:13 AM [id number]
== END ==
LOC: CT 07:06
PROVIDERS: ATTEND Urology
DX: N20.0 Calculus of kidney (principal)
CPT/HCPCS: 74178; Q9967

== ENCOUNTER → 2018-06-19 | Outpatient (CLI) | payer BC ==
[~2018-06-19] MED LIST changes: -IOPAMIDOL 76% 75 ML INFUS BTL 75 ML ONE
== END ==
LOC: LAB 13:44
PROVIDERS: ATTEND Urology
DX: R31.9 Hematuria, unspecified (principal); R10.31 Right lower quadrant pain
CPT/HCPCS: 81001

== ENCOUNTER 2018-07-13 00:19 | Day surgery (SDC) | payer BC ==
[~2018-07-13] VITALS: Ht 160 cm; Wt 53.5 kg
[~2018-07-13 00:19] MED LIST changes: +CRAN1CAP14 PO; +ESTR1PAT4 TD
[2018-07-13 07:29] LABS: PLATELET COUNT, AUTOMATED 215 K/uL (150-450)
[2018-07-13] MEDS ORDERED: fentaNYL CITR 100 MCG/2 ML AMP ONE ×4 (07:44→11:19)
[2018-07-13] MEDS ORDERED: PROPOFOL EMUL(*) 10MG/ML 20 ML 20 ML ONE (07:45)
[2018-07-13] MEDS ORDERED: LIDOCAINE MPF 1% 5 ML VIAL ONE (07:45)
[2018-07-13 08:07] VITALS: BP 110/66
[2018-07-13] MEDS ORDERED: DEXAMETHASONE SOD 4 MG/ML VIAL ONE (09:21)
[2018-07-13] MEDS ORDERED: ONDANSETRON 4 MG/2 ML VIAL ONE (09:22)
[2018-07-13] MEDS ORDERED: MIDAZOLAM 2 MG/2 ML VIAL IVP PRN (09:50)
[2018-07-13] MEDS ORDERED: FAMOTIDINE 20 MG TAB PO ONE (09:50)
[2018-07-13] MEDS ORDERED: SCOPOLAMINE 1.5 MG PATCH TD ONE (09:50)
[2018-07-13] MEDS ORDERED: NORMOSOL R SOLN(*) 1000 ML BAG 1,000 ML IV PRN (09:50)
[2018-07-13] MEDS ORDERED: LIDOCAINE/SOD BICARB 8.4% SYR ID ONE (09:50)
[2018-07-13] MEDS ORDERED: LEVOFLOXACIN/D5W*500 MG/100 ML 100 ML IVPB ONE (09:50)
--- NOTE | 2018-07-13 10:15 | Urology Discharge Summary ---
Discharge Summary Departure Weight (Pounds): 118 Result Diagram: 07/13/18 0722 Condition: Improved Discharge: Home Time Spent: < 30 min Discharge Instructions Home Meds Active Scripts Ondansetron 4 Mg Odt (ONDANSETRON 4 MG ODT) 4 Mg Tab.rapdis, 4 MG PO Q6-8H PRN for NAUSEA, #3 TAB 0 Refills Take 1 tab every 6-8 hours as needed for nausea. Prov:RUT MOYA MD 07/15/18 Oxybutynin Chloride (OXYBUTYNIN CHLORIDE ER) 15 Mg Tab.er.24, 15 MG PO QDAY for bladder spasm for 30 Days, #30 TAB.SA Prov:RUT MOYA MD 06/19/18 Reported Medications Hydrocodone Bit/Acetaminophen (HYDROCODON-ACETAMINOPHEN 5-325) 1 Each Tablet, 1- 2 EACH PO Q4-6H PRN for PAIN, #6 TAB 07/13/18 Estradiol (ESTRADIOL 0.1 MG) 1 Each Patch.tdwk, 1 EACH TD Q7D, PATCH.WK 07/09/18 Cranberry Conc/Ascorbic Acid (CRANBERRY + VIT C SOFTGEL) 1 Each Capsule, 2 EACH PO, CAPSULE 07/09/18 Progesterone,Micronized (PROGESTERONE) 200 Mg Capsule, 200 MG PO QDAY, CAPSULE 06/07/18 Discontinued Reported Medications [Testosterone Cream] No Conflict Check 06/07/18 [Testosterone Patch] No Conflict Check 06/07/18 Hydroxyzine Hcl (HYDROXYZINE HCL) 50 Mg Tablet, 50 MG PO Q8H PRN for ANXIETY 06/07/18 Discontinued Scripts Ondansetron (ZOFRAN ODT) 4 Mg Tab.rapdis, 4 MG PO every 6 hours PRN for NAUSEA/VOMITING, #15 TAB TAKE 1 TABLET BY MOUTH EVERY 12 HOURS Prov:LISANDRA BOOTHE DO 06/07/18 Diet: Regular Activity: As Tolerated Venous Thromboembolism Antithrombotics Is Pt On Any Antithrombotics?: No RUT MOYA MD Jul 13, 2018 10:15
[2018-07-13 11:10] VITALS: BP 108/81
[2018-07-13 11:15] VITALS: BP 108/77
[2018-07-13 11:29] VITALS: BP 93/76
[2018-07-13 11:31] VITALS: BP 101/86
[2018-07-13] MEDS ORDERED: APAP/HYDROCODONE 325/5 TAB ONE (12:44)
[2018-07-13] MEDS ORDERED: HYDR-385 PO (12:52)
--- NOTE | 2018-07-13 13:27 | OPERATIVE REPORT 1 ---
EVENT DATE: July 13, 2018 SURGEON: Augie Santos MD ANESTHESIOLOGIST: Bill Almendarez MD ANESTHESIA: General. ROUNDING MACHINE TENDER: None. PREOPERATIVE DIAGNOSIS Chronic pelvic pain. POSTOPERATIVE DIAGNOSIS Chronic pelvic pain. PROCEDURE PERFORMED Urethral dilation, cystoscopy and hydrodistention. DESCRIPTION OF PROCEDURE The patient was brought to the operating room and after the adequate induction of general anesthesia, she was placed in the relaxed dorsal lithotomy position. The genitalia were scrubbed, prepped and draped in the sterile fashion. The bladder examined with the flexible cystoscope. The urethra was then calibrated to 32-[place] with the urethral sounds. Cystoscopy was then performed. There were no mucosal abnormalities seen within the bladder. There was no evidence of Hunner's ulcer and the trigone appeared normal with orthotopic ureteral orifices. Her bladder was emptied and a 20-[place] Marks catheter passed into the bladder. Her bladder was then hydrodistended with a total of 1200 cc to its physiological capacity at 80 cm of water pressure. It was allowed to dwell at this setting for 8 minutes. Her bladder was then emptied. There was no terminal bloody efflux. The catheter was removed and the bladder was examined. There were minimal, if any submucosal hemorrhages/glomerulation and the bladder itself was intact. She was then aroused from anesthesia and transported to the PACU in stable condition. S[facility]
[2018-07-15] MEDS ORDERED: ONDA4TAB9 PO (13:22)
== END 2018-07-13 11:05 | disposition home or self-care (01) ==
LOC: OR 00:19
PROVIDERS: ATTEND Urology
DX: R10.2 Pelvic and perineal pain (principal)
CPT/HCPCS: 36415; 52000; 85025; A4344; J1100; J1956; J2001; J2250; J2405; J2704; J3010

== ENCOUNTER 2018-09-11 12:08 | Emergency (ER) | payer BC ==
[~2018-09-11 12:08] MED LIST changes: +HYDR-385 PO; +ONDA4TAB9 PO
--- NOTE | 2018-09-11 12:10 | ER Report ---
History and Physical Time Seen By MD: 12:10 HPI/ROS CHIEF COMPLAINT: Fall HISTORY OF PRESENT ILLNESS: Patient is a 33-year-old female here status post fall this morning while walking her dogs. Patient reportedly slipped on ice and landed on her right side causing neck pain, right sided shoulder pain, elbow pain, right-sided lateral rib pain. Patient denies loss of consciousness, headache, visual changes. Patient is neurovascularly intact at time of nhung luation. REVIEW OF SYSTEMS: Constitutional: No fever, no chills. Eyes: No discharge. ENT: No sore throat. Cardiovascular: No chest pain, no palpitations. + right lateral rib pain Respiratory: No cough, no shortness of breath. Gastrointestinal: No abdominal pain, no vomiting. Genitourinary: No hematuria. Musculoskeletal: + neck pain, + right shoulder and proximal upper extremity pain Skin: No rashes. Neurological: No headache. NV intact in the upper extremities Allergies: Coded Allergies: No Known Drug Allergies (Unverified , 09/11/18) Home Meds Active Scripts Tramadol Hcl (TRAMADOL HCL) 50 Mg Tablet, 50 MG PO Q6H PRN for PAIN, #10 TAB 0 Refills Prov:SHIRIN LEONARD DO 09/11/18 Reported Medications Estradiol (ESTRADIOL 0.1 MG) 1 Each Patch.tdwk, 1 EACH TD Q7D, PATCH.WK 07/09/18 Cranberry Conc/Ascorbic Acid (CRANBERRY + VIT C SOFTGEL) 1 Each Capsule, 2 EACH PO, CAPSULE 07/09/18 Progesterone,Micronized (PROGESTERONE) 200 Mg Capsule, 200 MG PO QDAY, CAPSULE 06/07/18 Discontinued Scripts Oxybutynin Chloride (OXYBUTYNIN CHLORIDE ER) 15 Mg Tab.er.24, 15 MG PO QDAY for 90 Days, #90 TAB.SA Prov:RUT MOYA MD 07/23/18 Hx Smoking: No (1/2 PPD FOR 10 YEARS ATTEMPTING TO QUIT ) Smoking Status: Former Smoker Hx Substance Use Disorder: No Hx Alcohol Use: No Constitutional Vital Sign - Last 24 Hours 09/11/18 09/11/18 09/11/18 09/11/18 12:08 12:16 12:17 12:30 Temp 98.8 Pulse 70 82 Resp 14 B/P (MAP) 122/94 (103) 122/94 106/82 (90) Pulse Ox 95 97 O2 Delivery Room Air Room Air 09/11/18 09/11/18 09/11/18 09/11/18 12:38 13:00 13:05 13:30 Pulse 71 65 B/P (MAP) 101/72 (82) 108/90 (96) Pulse Ox 94 94 O2 Delivery Room Air Room Air 09/11/18 09/11/18 13:35 14:00 Pulse 72 B/P (MAP) 112/84 (93) Pulse Ox 97 O2 Delivery Room Air Physical Exam General Appearance: The patient is alert, has no immediate need for airway protection and no signs of toxicity. NAD Eyes: Pupils equal and round no pallor or injection. ENT, Mouth: Mucous membranes are moist. Respiratory: There are no retractions, lungs are clear to auscultation. Cardiovascular: Regular rate and rhythm. Gastrointestinal: Abdomen is soft and non tender, no masses, bowel sounds normal. Neurological: No focal neuro findings Skin: Warm and dry, no rashes. Musculoskeletal: Neck is supple + mildly tender on palpation + RUQ proximal tenderness on ROM DIFFERENTIAL DIAGNOSIS: After history and physical exam differential diagnosis was considered for fracture, contusion, musculoskeletal strain Medical Decision Making EKG/Imaging Imaging Please see official radiology reports for further details ED Course/Re-evaluation ED Course Patient is a 33-year-old female here status post fall this morning while walking her dogs. X-ray imaging was obtained of the C-spine, shoulder, upper extremity, ribs. No acute fractures identified. Close PCP follow-up recommended, return precautions provided. Decision to Disposition Date: Sep 11, 2018 Decision to Disposition Time: 14:00 Depart Departure Latest Vital Signs Vital Signs Date Time Temp Pulse Resp B/P (MAP) Pulse Ox O2 Delivery O2 Flow Rate FiO2 09/11/18 14:00 112/84 (93) 09/11/18 13:35 72 97 Room Air 09/11/18 12:17 98.8 14 Impression: Primary Impression: Fall Condition: Improved Disposition: HOME OR SELF-CARE Referrals: LIVIER JEAN MD (PCP) New Scripts Tramadol Hcl (TRAMADOL HCL) 50 Mg Tablet 50 MG PO Q6H PRN for PAIN, #10 TAB 0 Refills Prov: SHIRIN LEONARD DO 09/11/18 Patient Instructions: Musculoskeletal Pain (ED) Additional Instructions: Please drink plenty of water. You may take ibuprofen, naproxen or acetaminophen as needed for primary pain control. You may take 1 tramadol every 8 hours as needed for breakthrough pain control. No acute fractures were identified on x- ray imaging. Please return promptly if you develop numbness, muscle weakness, confusion, worsening headache, visual changes. Please follow-up with your family doctor in the next 48 hours for outpatient evaluation and care. SHIRIN LEONARD DO Sep 11, 2018 12:10
[2018-09-11] MEDS ORDERED: KETOROLAC 30 MG/ML VIAL IM ONE (12:25)
--- NOTE | 2018-09-11 13:45 | RADIOLOGY IMAGING REPORT ---
FACILITY: [facility] PATIENT NAME: Korin Will : 1985 MR: [id number] V: [id number] EXAM DATE: ORDERING PHYSICIAN: SHIRIN LEONARD TECHNOLOGIST: Location: [facility] - [place] Patient: Korin Will : 1985 Visit/Account:[id number] Date of Sevice: 09/11/2018 Exam type: RIBS RIGHT History: fall Comparison: None Findings: Three views of the right ribs demonstrate no evidence of definite right rib fracture. There is no ev idence of right pleural effusion or pneumothorax or pulmonary consolidation. IMPRESSION: 1. No evidence of definite right rib fracture. If patient's symptoms persist follow up imaging in s everal weeks may be helpful to exclude an occult fracture Report Dictated By: Monik Fermin MD at 09/11/2018 1:38 PM Report E-Signed By: Monik Fermin MD at 09/11/2018 1:40 PM WSN:[email or web address]
--- NOTE | 2018-09-11 13:46 | RADIOLOGY IMAGING REPORT ---
FACILITY: [facility] - [place] PATIENT NAME: Korin Will : 1985 MR: [id number] V: [id number] EXAM DATE: ORDERING PHYSICIAN: SHIRIN LEONARD TECHNOLOGIST: Location: [facility] - [place] Patient: Korin Will : 1985 Visit/Account:[id number] Date of Sevice: 09/11/2018 Exam type: ELBOW 2 VIEW RIGHT History: fall Comparison: None. Findings: Two views of the right elbow demonstrate no evidence of acute fracture or dislocation. No radiopaque soft tissue foreign body seen. No significant arthritic change identified IMPRESSION: 1. No acute osteoarticular abnormality of the right elbow is seen Report Dictated By: Monik Fermin MD at 09/11/2018 1:41 PM Report E-Signed By: Monik Fermin MD at 09/11/2018 1:42 PM WSN:[email or web address]
--- NOTE | 2018-09-11 13:46 | RADIOLOGY IMAGING REPORT ---
FACILITY: [facility] - [place] PATIENT NAME: Korin Will : 1985 MR: [id number] V: [id number] EXAM DATE: ORDERING PHYSICIAN: SHIRIN LEONARD TECHNOLOGIST: Location: [facility] Patient: Korin Will : 1985 Visit/Account:[id number] Date of Sevice: 09/11/2018 Exam type: CHEST PA LAT History: fall Comparison: None. Findings: There is no evidence of focal infiltrates, pleural effusions or pulmonary edema. There is no evidenc e of a pneumothorax or pneumomediastinum. The cardiac silhouette is normal in size. There is a pect us excavatum deformity the anterior chest wall producing a pseudoinfiltrate along the right heart bor elsy. IMPRESSION: 1. No acute cardiopulmonary process is seen Report Dictated By: Monik Fermin MD at 09/11/2018 1:40 PM Report E-Signed By: Monik Fermin MD at 09/11/2018 1:41 PM WSN:[email or web address]
--- NOTE | 2018-09-11 13:47 | RADIOLOGY IMAGING REPORT ---
FACILITY: [facility] PATIENT NAME: Korin Will : 1985 MR: [id number] V: [id number] EXAM DATE: ORDERING PHYSICIAN: SHIRIN LEONARD TECHNOLOGIST: Location: [facility] - [place] Patient: Korin Will : 1985 Visit/Account:[id number] Date of Sevice: 09/11/2018 Exam type: HUMERUS RIGHT History: fall Comparison: None. Findings: There is no evidence of acute fracture-dislocation involving the right humerus. No radial opaque sof t tissue foreign body seen IMPRESSION: 1. No acute osteoarticular abnormality the right humerus is seen Report Dictated By: Monik Fermin MD at 09/11/2018 1:42 PM Report E-Signed By: Monik Fermin MD at 09/11/2018 1:44 PM WSN:[email or web address]
--- NOTE | 2018-09-11 13:50 | RADIOLOGY IMAGING REPORT ---
[place] [facility] [place]IENT NAME: Korin Will : 1985 MR: [id number] V: [id number] EXAM DATE: ORDERING PHYSICIAN: SHIRIN LEONARD TECHNOLOGIST: [place] [facility] [place] Korin [place] : 1985 Visit/Account:[id number] Date of Sevice: 09/11/2018 Exam type: CERVICAL SPINE 2 OR 3 VIEW History: fall Comparison: None. Findings: Three views of the cervical spine demonstrate C1 C7 in gross anatomic alignment. There is no evidenc e of acute fractures or subluxations or prevertebral soft tissue swelling. IMPRESSION: 1. No radiographic abnormality of the cervical spine Report Dictated By: Monik Fermin MD at 09/11/2018 1:44 PM Report E-Signed By: Monik Fermin MD at 09/11/2018 1:45 PM WSN:[email or web address]
--- NOTE | 2018-09-11 13:50 | RADIOLOGY IMAGING REPORT ---
FACILITY: [facility] PATIENT NAME: Korin Will : 1985 MR: [id number] V: [id number] EXAM DATE: ORDERING PHYSICIAN: SHIRIN LEONARD TECHNOLOGIST: Location: [facility] - [place] Patient: Korin Will : 1985 Visit/Account:[id number] Date of Sevice: 09/11/2018 Exam type: SHOULDER MIN 2 VIEWS RIGHT History: fall Comparison: Right humerus performed today. Findings: Four views of the right shoulder demonstrate no evidence of acute fracture dislocation at the right s houlder joint. No evidence of a right AC joint separation. No significant arthritic change identifi ed IMPRESSION: 1. No acute osteoarticular abnormality of the right humerus is seen Report Dictated By: Monik Fermin MD at 09/11/2018 1:44 PM Report E-Signed By: Monik Fermin MD at 09/11/2018 1:44 PM WSN:[email or web address]
[2018-09-11] MEDS ORDERED: TRAM-420 PO (13:54)
[2018-09-11 14:00] VITALS: BP 112/84
== END 2018-09-11 14:13 | disposition home or self-care (01) ==
LOC: ER 12:15
DX: M54.2 Cervicalgia (principal); M25.511 Pain in right shoulder; R07.81 Pleurodynia; W00.0XXA Fall on same level due to ice and snow, initial encounter; Y93.K1 Activity, walking an animal
CPT/HCPCS: 71046; 71100; 72040; 73030; 73060; 73070; 96372; 99284; J1885

== ENCOUNTER 2018-11-13 21:49 | Emergency (ER) | payer BC ==
[~2018-11-13 21:49] MED LIST changes: +TRAM-420 PO
--- NOTE | 2018-11-13 21:52 | ER Report ---
History and Physical Time Seen By MD: 21:51 HPI/ROS CHIEF COMPLAINT: Right flank pain HISTORY OF PRESENT ILLNESS: 33-year-old female with a history of kidney stones and urologic problems followed by Dr. Moya presents with 3 days of severe rig ht flank pain with vomiting. She's been taking some Aleve and ibuprofen without improvement. She's had some leftover Zofran, which she's tried to use, but she's vomited that up as well. Patient notes some fever and chills. She describes crampy severe pain in her right flank which feels like someone kicked her there. REVIEW OF SYSTEMS: Respiratory: No cough, no dyspnea. Cardiovascular: No chest pain, no palpitations. Gastrointestinal: As above Musculoskeletal: As above Allergies: Coded Allergies: No Known Drug Allergies (Unverified , 11/13/18) Home Meds Active Scripts Promethazine Hcl (PROMETHAZINE HCL) 25 Mg Tablet, 25 MG PO Q4H PRN for NAUSEA/VOMITING, #12 TAB Prov:LISANDRA BOOTHE DO 11/13/18 Ondansetron 4 Mg Odt (ONDANSETRON 4 MG ODT) 4 Mg Tab.rapdis, 4 MG PO Q6H PRN for NAUSEA/VOMITING, #12 TAB Prov:TLLISANDRA Linda DO 11/13/18 Oxycodone Hcl/Acetaminophen (PERCOCET 5-325 MG TABLET) 1 Each Tablet, 1 EACH PO Q4-6H PRN for PAIN, #12 Prov:LISANDRA BOOTHE Linda DO 11/13/18 Reported Medications Ondansetron Hcl (ZOFRAN) 4 Mg Tablet, 4 MG PO Q12H, TAB 11/13/18 Discontinued Reported Medications Estradiol (ESTRADIOL 0.1 MG) 1 Each Patch.tdwk, 1 EACH TD Q7D, PATCH.WK 07/09/18 Cranberry Conc/Ascorbic Acid (CRANBERRY + VIT C SOFTGEL) 1 Each Capsule, 2 EACH PO, CAPSULE 07/09/18 Progesterone,Micronized (PROGESTERONE) 200 Mg Capsule, 200 MG PO QDAY, CAPSULE 06/07/18 Discontinued Scripts Tramadol Hcl (TRAMADOL HCL) 50 Mg Tablet, 50 MG PO Q6H PRN for PAIN, #10 TAB 0 Refills Prov:SHIRIN LEONARD DO 09/11/18 Past Medical/Surgical History Past Medical History Genitourinary: Reports hx of: endometriosis Psychiatric: Reports hx of: PTSD Past Surgical History Gynecologic: Reports hx of: hysterectomy other [employer] surgery (ovarian cyst removal ) Breast: Reports hx of: other breast surgery (breast reduction) Reviewed Nurses Notes: Yes Old Medical Records Reviewed: Yes Hx Smoking: No (1/2 PPD FOR 10 YEARS ATTEMPTING TO QUIT ) Smoking Status: Former Smoker Hx Substance Use Disorder: No Hx Alcohol Use: No Constitutional Vital Sign - Last 24 Hours 11/13/18 11/13/18 11/13/18 11/13/18 21:49 21:53 21:54 22:00 Temp 99.0 Pulse ??? 83 Resp 16 B/P (MAP) 124/94 124/94 (104) 116/92 (100) Pulse Ox 96 O2 Delivery Room Air 11/13/18 11/13/18 11/13/18 11/13/18 22:04 22:19 22:30 22:34 Pulse 72 72 64 B/P (MAP) 119/86 (97) Pulse Ox 91 97 97 11/13/18 11/13/18 11/13/18 11/13/18 22:49 23:00 23:04 23:19 Pulse 74 75 61 B/P (MAP) 115/79 (91) Pulse Ox 93 96 95 11/13/18 11/13/18 23:30 23:34 Pulse ??? B/P (MAP) 119/90 (100) Physical Exam General Appearance: The patient is alert, has no immediate need for airway protection and no current signs of toxicity. Vital signs stable, afebrile, pulse ox normal, moderate distress, slightly pale appearing HEENT: Pupils equal and round no injection. TMs normal, oropharynx without redness or exudate Respiratory: Chest is non tender, lungs are clear to auscultation. Cardiac: regular rate and rhythm Gastrointestinal: Abdomen is soft and non tender, no masses, bowel sounds normal. Mild right CVA tenderness Musculoskeletal: Neck: Neck is supple and non tender. Extremities have full range of motion and are non tender. Skin: No rashes or lesions. DIFFERENTIAL DIAGNOSIS: After history and physical exam differential diagnosis was considered for flank pain including but not limited to musculoskeletal causes, kidney stone, pyelonephritis, shingles, and intra-abdominal causes such as diverticulitis and appendicitis. Additionally,abdominal pain including but not limited to appendicitis, cholecystitis, gastritis and urinary tract infection. Medical Decision Making Data Points Result Diagram: 11/13/18215611/13/182156 Laboratory Hematology Test 11/13/18 21:57 Red Blood Count 4.93 M/uL (4.17-5.56) Mean Corpuscular Volume 92.5 fL (80.0-96.0) Mean Corpuscular Hemoglobin 31.9 pg (26.0-33.0) Mean Corpuscular Hemoglobin Concent 34.5 g/dL (32.0-36.0) Red Cell Distribution Width 12.3 % (11.5-14.5) Mean Platelet Volume 8.0 fL (7.2-11.1) Neutrophils (%) (Auto) 49.0 % (39.4-72.5) Lymphocytes (%) (Auto) 41.4 % (17.6-49.6) Monocytes (%) (Auto) 7.1 % (4.1-12.4) Eosinophils (%) (Auto) 1.9 % (0.4-6.7) Basophils (%) (Auto) 0.6 % (0.3-1.4) Nucleated RBC Relative Count (auto) 0.0 /100WBC Neutrophils # (Auto) 5.3 K/uL (2.0-7.4) Lymphocytes # (Auto) 4.4 K/uL (1.3-3.6) Monocytes # (Auto) 0.8 K/uL (0.3-1.0) Eosinophils # (Auto) 0.2 K/uL (0.0-0.5) Basophils # (Auto) 0.1 K/uL (0.0-0.1) Nucleated RBC Absolute Count (auto) 0.00 K/uL Urine Color Yellow Urine Clarity Clear Urine pH 6.0 pH (4.8-9.5) Urine Specific Pitman 1.005 Urine Protein Negative mg/dL (NEGATIVE) Urine Glucose (UA) Negative mg/dL (NEGATIVE) Urine Ketones Negative mg/dL (NEGATIVE) Urine Blood Negative (NEGATIVE) Urine Nitrite Negative (NEGATIVE) Urine Bilirubin Negative (NEGATIVE) Urine Urobilinogen Negative mg/dL (0.2-1.9) Urine Leukocyte Esterase Moderate (NEGATIVE) Urine RBC 1 /HPF (0-2/HPF) Urine WBC 3 /HPF (0-5/HPF) Urine Squamous Epithelial Cells None /LPF (</=FEW) Urine Bacteria Negative /HPF (NONE-FEW) Urine Mucus None /HPF (NONE-FEW) Urine HCG, Qualitative Negative (NEGATIVE) Sodium Level 138 mmol/L (137-145) Potassium Level 4.1 mmol/L (3.5-5.0) Chloride Level 101 mmol/L (98-107) Carbon Dioxide Level 29 mmol/L (22-31) Blood Urea Nitrogen 10 mg/dl (7-18) Creatinine 0.70 mg/dl (0.52-1.04) Glomerular Filtration Rate Calc > 60.0 Random Glucose 77 mg/dl (75-110) Calcium Level 9.8 mg/dl (8.4-10.2) Total Bilirubin 0.5 mg/dl (0.2-1.3) Aspartate Amino Transf (AST/SGOT) 21 U/L (0-35) Alanine Aminotransferase (ALT/SGPT) 18 U/L (0-56) Alkaline Phosphatase 54 U/L (0-126) Total Protein 8.2 g/dl (6.3-8.2) Albumin 5.1 g/dl (3.5-5.0) Amylase Level 63 U/L (0-110) Lipase 113 U/L (23-300) Chemistry Test 11/13/18 21:57 White Blood Count 10.7 k/uL (4.5-11.0) Red Blood Count 4.93 M/uL (4.17-5.56) Hemoglobin 15.7 g/dL (12.0-16.0) Hematocrit 45.6 % (34.0-47.0) Mean Corpuscular Volume 92.5 fL (80.0-96.0) Mean Corpuscular Hemoglobin 31.9 pg (26.0-33.0) Mean Corpuscular Hemoglobin Concent 34.5 g/dL (32.0-36.0) Red Cell Distribution Width 12.3 % (11.5-14.5) Platelet Count 246 K/uL (150-450) Mean Platelet Volume 8.0 fL (7.2-11.1) Neutrophils (%) (Auto) 49.0 % (39.4-72.5) Lymphocytes (%) (Auto) 41.4 % (17.6-49.6) Monocytes (%) (Auto) 7.1 % (4.1-12.4) Eosinophils (%) (Auto) 1.9 % (0.4-6.7) Basophils (%) (Auto) 0.6 % (0.3-1.4) Nucleated RBC Relative Count (auto) 0.0 /100WBC Neutrophils # (Auto) 5.3 K/uL (2.0-7.4) Lymphocytes # (Auto) 4.4 K/uL (1.3-3.6) Monocytes # (Auto) 0.8 K/uL (0.3-1.0) Eosinophils # (Auto) 0.2 K/uL (0.0-0.5) Basophils # (Auto) 0.1 K/uL (0.0-0.1) Nucleated RBC Absolute Count (auto) 0.00 K/uL Urine Color Yellow Urine Clarity Clear Urine pH 6.0 pH (4.8-9.5) Urine Specific Pitman 1.005 Urine Protein Negative mg/dL (NEGATIVE) Urine Glucose (UA) Negative mg/dL (NEGATIVE) Urine Ketones Negative mg/dL (NEGATIVE) Urine Blood Negative (NEGATIVE) Urine Nitrite Negative (NEGATIVE) Urine Bilirubin Negative (NEGATIVE) Urine Urobilinogen Negative mg/dL (0.2-1.9) Urine Leukocyte Esterase Moderate (NEGATIVE) Urine RBC 1 /HPF (0-2/HPF) Urine WBC 3 /HPF (0-5/HPF) Urine Squamous Epithelial Cells None /LPF (</=FEW) Urine Bacteria Negative /HPF (NONE-FEW) Urine Mucus None /HPF (NONE-FEW) Urine HCG, Qualitative Negative (NEGATIVE) Glomerular Filtration Rate Calc > 60.0 Calcium Level 9.8 mg/dl (8.4-10.2) Total Bilirubin 0.5 mg/dl (0.2-1.3) Aspartate Amino Transf (AST/SGOT) 21 U/L (0-35) Alanine Aminotransferase (ALT/SGPT) 18 U/L (0-56) Alkaline Phosphatase 54 U/L (0-126) Total Protein 8.2 g/dl (6.3-8.2) Albumin 5.1 g/dl (3.5-5.0) Amylase Level 63 U/L (0-110) Lipase 113 U/L (23-300) Urinalysis Test 4/12/19 21:57 Urine Color Yellow Urine Clarity Clear Urine pH 6.0 pH (4.8-9.5) Urine Specific Pitman 1.005 Urine Protein Negative mg/dL (NEGATIVE) Urine Glucose (UA) Negative mg/dL (NEGATIVE) Urine Ketones Negative mg/dL (NEGATIVE) Urine Blood Negative (NEGATIVE) Urine Nitrite Negative (NEGATIVE) Urine Bilirubin Negative (NEGATIVE) Urine Urobilinogen Negative mg/dL (0.2-1.9) Urine Leukocyte Esterase Moderate (NEGATIVE) Urine RBC 1 /HPF (0-2/HPF) Urine WBC 3 /HPF (0-5/HPF) Urine Squamous Epithelial Cells None /LPF (</=FEW) Urine Bacteria Negative /HPF (NONE-FEW) Urine Mucus None /HPF (NONE-FEW) Urine HCG, Qualitative Negative (NEGATIVE) EKG/Imaging Imaging Results: CT scan of the abdomen and pelvis without IV contrast was obtained. The results of the study are CT ABDOMEN PELVIS W/O CON EXAMINATION: CT abdomen/pelvis without IV contrast HISTORY: Right flank pain One of the following dose optimization techniques was utilized in the performance of this exam: Automated exposure control; adjustment of the mA and/or kV according to the patient's size; or use of an iterative recons truction technique. Specific details can be referenced in the facility's radiology CT exam operational policy. TECHNIQUE: CT scan of the abdomen and pelvis performed from the lung base through pubic symphysis without IV contrast. COMPARISON STUDIES: None FINDINGS: Please note that this exam was tailored for detection of urinary stones. Portions of the upper abdomen may not be included. Also, with intravenous contrast, sensitivity to detection of parenchymal disease is limited. Right kidney and ureter: Several nonobstructing 2 mm stone seen within the collecting system. Mild pelvicalyceal prominence within the kidney. No ureteral obstruction. Ureter well visualized down to the bladder with no obstructive change. No ureteral stones seen. Left kidney and ureter: Several nonobstructing 2 mm stones seen within the kidney. Mild prominence of the pelvicalyceal system slightly less pronounced than the right kidney. Left ureter without any dilatation or obstructive change. No ureteral stones seen. Bladder: No stone within the bladder to suggest recently passed stone. Single phleboliths seen in the left lower pelvis similar to the previous CT scan. Liver/Biliary: . Pancreas: Negative Spleen: Negative Adrenal glands: Negative Kidneys/Retroperitoneum: Negative Pelvic structures: Status post hysterectomy. No pelvic mass lesions. No abnormal fluid Bowel/peritoneum/mesenteries: No bowel inflammation. Appendix normal with no appendicitis. Vessels: Negative Musculoskeletal/body wall: Negative Lymph node assessment: Negative Lower chest: Negative IMPRESSION: 1. Minimal small bilateral renal calculi burden in both kidneys. No evidence of renal obstructive uropathy change. Stable appearing mild pyelocalyceal prominence right greater than left with no interval change in its appearance when compared to the previous study. 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 I viewed the images myself on the PACS system. ED Course/Re-evaluation Clinical Indication for ER IV: Hydration, IV Access ED Course Patient was admitted to an examination room. H&P was done. The differential diagnoses was considered. On clinical examination. Patient with severe left flank pain. She has a history of kidney stones. Patient's diagnostic studies are unremarkable. A CT scan without contrast is performed which shows no evidence of acute stones. There are nonobstructing bilateral kidney stones. 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 Patient's discharged home. A conservative treatment plan advised to follow-up with urology. Decision to Disposition Date: Nov 13, 2018 Decision to Disposition Time: 23:20 Depart Departure Latest Vital Signs Vital Signs Date Time Temp Pulse Resp B/P (MAP) Pulse Ox O2 Delivery O2 Flow Rate FiO2 11/13/18 23:34 ??? 11/13/18 23:30 119/90 (100) 11/13/18 23:19 95 11/13/18 21:53 99.0 16 Room Air Impression: Primary Impression: Right flank pain Additional Impression: History of kidney stones Condition: Improved Disposition: HOME OR SELF-CARE Referrals: LIVIER JEAN MD (PCP) RUT MOYA MD New Scripts Promethazine Hcl (PROMETHAZINE HCL) 25 Mg Tablet 25 MG PO Q4H PRN for NAUSEA/VOMITING, #12 TAB Prov: LISANDRA BOOTHE DO 11/13/18 Ondansetron 4 Mg Odt (ONDANSETRON 4 MG ODT) 4 Mg Tab.rapdis 4 MG PO Q6H PRN for NAUSEA/VOMITING, #12 TAB Prov: LISANDRA BOOTHE DO 4/12/19 Oxycodone Hcl/Acetaminophen (PERCOCET 5-325 MG TABLET) 1 Each Tablet 1 EACH PO Q4-6H PRN for PAIN, #12 Prov: LISANDRA BOOTHE DO 11/13/18 Patient Instructions: Flank Pain (ED) Additional Instructions: Take ibuprofen or Aleve as needed for pain relief Follow-up with Dr. Moya as planned on Friday Problem Qualifiers LISANDRA BOOTHE DO Nov 13, 2018 21:52
[2018-11-13] MEDS ORDERED: ONDA4TAB97 PO (21:57)
[2018-11-13] MEDS ORDERED: NS(*) 0.9% 1000 ML BAG 1,000 ML IV ONE (21:59)
[2018-11-13] MEDS ORDERED: KETOROLAC 30 MG/ML VIAL IVP ONE (22:00)
[2018-11-13] MEDS ORDERED: HYDROMORPHONE HCL 1 MG/ML SYRINGE IVP ONE (22:00)
[2018-11-13] MEDS ORDERED: ONDANSETRON 4 MG/2 ML VIAL IVP ONE (22:00)
[2018-11-13 22:11] LABS: PLATELET COUNT, AUTOMATED 246 K/uL (150-450)
--- NOTE | 2018-11-13 23:11 | RADIOLOGY IMAGING REPORT ---
FACILITY: [facility] PATIENT NAME: Korin Will : 1985 MR: [id number] V: [id number] EXAM DATE: ORDERING PHYSICIAN: LISANDRA BOOTHE TECHNOLOGIST: Location: [facility] - [place] Patient: Korin Will : 1985 Visit/Account:[id number] Date of Sevice: 11/13/2018 CT ABDOMEN PELVIS W/O CON EXAMINATION: CT abdomen/pelvis without IV contrast HISTORY: Right flank pain One of the following dose optimization techniques was utilized in the performance of this exam: Autom ated exposure control; adjustment of the mA and/or kV according to the patient's size; or use of an i terative reconstruction technique. Specific details can be referenced in the facility's radiology C T exam operational policy. TECHNIQUE: CT scan of the abdomen and pelvis performed from the lung base through pubic symphysis wit hout IV contrast. COMPARISON STUDIES: None FINDINGS: Please note that this exam was tailored for detection of urinary stones. Portions of the upper abdome n may not be included. Also, with intravenous contrast, sensitivity to detection of parenchymal disea se is limited. Right kidney and ureter: Several nonobstructing 2 mm stone seen within the collecting system. Mild pe lvicalyceal prominence within the kidney. No ureteral obstruction. Ureter well visualized down to the bladder with no obstructive change. No ureteral stones seen. Left kidney and ureter: Several nonobstructing 2 mm stones seen within the kidney. Mild prominence of the pelvicalyceal system slightly less pronounced than the right kidney. Left ureter without any dil atation or obstructive change. No ureteral stones seen. Bladder: No stone within the bladder to suggest recently passed stone. Single phleboliths seen in the left lower pelvis similar to the previous CT scan. Liver/Biliary: . Pancreas: Negative Spleen: Negative Adrenal glands: Negative Kidneys/Retroperitoneum: Negative Pelvic structures: Status post hysterectomy. No pelvic mass lesions. No abnormal fluid Bowel/peritoneum/mesenteries: No bowel inflammation. Appendix normal with no appendicitis. Vessels: Negative Musculoskeletal/body wall: Negative Lymph node assessment: Negative Lower chest: Negative IMPRESSION: 1. Minimal small bilateral renal calculi burden in both kidneys. No evidence of renal obstructive uro christine change. Stable appearing mild pyelocalyceal prominence right greater than left with no interval change in its appearance when compared to the previous study. 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
[2018-11-13] MEDS ORDERED: ONDANSETRON 4 MG ODT TH SL ONE (23:20)
[2018-11-13] MEDS ORDERED: oxyCODONE/ACETAMIN 5/325MG TH 2 TAB/BOTTLE PO ONE (23:20)
[2018-11-13] MEDS ORDERED: PROM-110 PO (23:23)
[2018-11-13] MEDS ORDERED: OXYC-865 PO (23:23)
[2018-11-13] MEDS ORDERED: ONDA4TAB9 PO (23:23)
[2018-11-13 23:30] VITALS: BP 119/90
== END 2018-11-13 23:28 | disposition home or self-care (01) ==
LOC: ER 21:52
DX: R10.9 Unspecified abdominal pain (principal); Z87.442 Personal history of urinary calculi; F17.200 Nicotine dependence, unspecified, uncomplicated
CPT/HCPCS: 74176; 81001; 82150; 83690; 85025; 96361; 96374; 96375; 99284; J1170; J1885; J2405; J7030; 81025; 82040; 82247; 82310; 82374; 82435; 82565; 82947; 84075; 84132; 84155; 84295; 84450; 84460; 84520

== ENCOUNTER → 2018-11-23 | Outpatient (CLI) | payer BC ==
[~2018-11-23] MED LIST changes: +FUROSEMIDE 40 MG/4 ML VIAL IVP ONE; +ONDA4TAB97 PO; +PROM-110 PO
--- NOTE | 2018-11-23 13:36 | RADIOLOGY IMAGING REPORT ---
FACILITY: [facility] PATIENT NAME: Korin Will : 1985 MR: [id number] V: [id number] EXAM DATE: ORDERING PHYSICIAN: RUT MOYA TECHNOLOGIST: Location: [facility] - [place] Patient: Korin Will : 1985 Visit/Account:[id number] Date of Sevice: 11/23/2018 EXAMINATION: Nuclear medicine renal scan with Lasix 11/23/2018 7:51 AM HISTORY: possible right UPJ obstruction COMPARISON: Renal stone CT 11/13/2018 TECHNIQUE: Patient was administered 10.5 mCi technetium 99m MAG3 intravenously. Renal scan images we re obtained. 40 mg Lasix was administered and renal washout was evaluated. FINDINGS: Split function evaluation demonstrates 50.8% function on the left and 49.2% on the right. Renal flow imaging is symmetric. There is no significant abnormal holdup of radiotracer on either s fransico and post-Lasix washout curves have a fairly normal appearance. IMPRESSION: Symmetric renal cortical function. No obstructive pattern with washout imaging. Report Dictated By: Freddy Motta MD at 11/23/2018 1:28 PM Report E-Signed By: Freddy Motta MD at 11/23/2018 1:31 PM WSN:[email or web address]
== END ==
LOC: NUC 01:01
PROVIDERS: ATTEND Urology
DX: R31.9 Hematuria, unspecified (principal); Z87.442 Personal history of urinary calculi; R10.9 Unspecified abdominal pain; N13.5 Crossing vessel and stricture of ureter without hydronephrosis
CPT/HCPCS: 78708; A9562

== ENCOUNTER → 2018-12-09 | Outpatient (CLI) | payer BC ==
[~2018-12-09] MED LIST changes: +ESCI20TA38 PO; +ESTR1PAT97 TD; -FUROSEMIDE 40 MG/4 ML VIAL IVP ONE; +MIRT15TA11 PO
== END ==
LOC: LAB 14:45
PROVIDERS: ATTEND Internal Medicine
DX: F41.1 Generalized anxiety disorder (principal); R10.9 Unspecified abdominal pain; R94.6 Abnormal results of thyroid function studies
CPT/HCPCS: 36415; 81001; 84439; 84443; 84481